=== PATIENT | male | born 1965 | race Caucasian/White ===

== ENCOUNTER 2022-07-21 07:14 | Inpatient (IN) | payer MEDICAID ==
[~2022-07-21] VITALS: Ht 160 cm; Wt 75.7 kg
[2022-07-21 08:22] LABS: BASOPHILS % 0.4 % (0.0-2.0); HEMOGLOBIN. 9.9 g/dL (14.0-18.0); MEAN CORPUSCULAR HEMOGLOBIN 30.5 pg (28.0-32.0); MEAN CORPUSCULAR VOLUME 89.5 fL (80.0-94.0); MEAN PLATELET VOLUME 7.5 fl (7.4-10.4); MONOCYTES % 5.9 % (2.0-8.0); NEUTROPHILS % 82.7 % (40.0-76.0); PLATELET 419 x1000/uL (130-400); RED BLOOD CELL COUNT 3.24 mill/uL (4.7-6.1); RED CELL DISTRIBUTION WIDTH 14.9 % (11.6-14.6)
[2022-07-21 08:34] LABS: CHLORIDE 111 mEq/L (98-107)
[2022-07-21 09:59] LABS: PROTHROMBIN TIME 11.1 sec (9.6-11.0)
[2022-07-21] MEDS ORDERED: POTASSIUM CHLORIDE 20MEQ TABLET SR PO ONE (11:00)
[2022-07-21] MEDS: PANTOPRAZOLE SODIUM 40 MG/VIAL IV SCH ×2 (12:21→12:36)
[2022-07-21 13:06] LABS: CLARITY URINE CLEAR (CLEAR); COLOR URINE YELLOW (YELLOW); KETONES URINE NEGATIVE (NEGATIVE); LEUKOCYTE ESTERASE URINE 3+ (NEGATIVE); NITRITE URINE NEGATIVE (NEGATIVE); OCCULT BLOOD URINE TRACE (NEGATIVE); PH URINE 5.5 (4.5-8.0); PROTEIN URINE 1+ (NEGATIVE); UROBILINOGEN URINE 0.2 E.U./dL (0.2-1.0)
[2022-07-21 13:19] LABS: TOTAL IRON BINDING CAPACITY 280 ug/dL (250-450)
[2022-07-21 13:23] LABS: HEMATOCRIT 24.2 % (42.0-52.0); HEMOGLOBIN 8.1 g/dL (14.0-18.0)
[2022-07-21] MEDS: SODIUM CHLORIDE 0.45% 1,000 ML IV NR (15:52)
[2022-07-21 18:23] VITALS: BP 123/64
[2022-07-21 19:27] LABS: HEMATOCRIT 23.9 % (42.0-52.0); HEMOGLOBIN 7.9 g/dL (14.0-18.0)
[2022-07-21 20:00] VITALS: BP 129/67
[2022-07-21] MEDS ORDERED: DIPHENHYDRAMINE 50MG/ML VIAL IV PRN (20:00)
[2022-07-21] MEDS ORDERED: ACETAMINOPHEN 325MG TABLET PO PRN ×2 (20:00)
[2022-07-21] MEDS ORDERED: ONDANSETRON HCL 4MG/2ML INJ IV PRN (20:00)
[2022-07-21] MEDS ORDERED: PANT40TA51 MT (20:23)
[2022-07-21] MEDS ORDERED: MAGN400T26 MT (20:25)
[2022-07-21] MEDS ORDERED: METO100T16 MT (20:26)
[2022-07-21] MEDS ORDERED: ABIR250T MT (20:26)
[2022-07-21] MEDS ORDERED: FOLI-43 MT (20:27)
[2022-07-21] MEDS ORDERED: PRED5TAB PO (20:29)
[2022-07-22] VITALS: BP 130/86
[2022-07-22 00:57] LABS: HEMATOCRIT 26.1 % (42.0-52.0); HEMOGLOBIN 8.8 g/dL (14.0-18.0)
[2022-07-22] MEDS: SODIUM CHLORIDE 0.45% 1,000 ML IV NR (01:41)
[2022-07-22 04:00] VITALS: BP 127/65
[2022-07-22 06:33] LABS: BASOPHILS % 0.5 % (0.0-2.0); EOSINOPHILS % 1.8 % (0.0-5.0); HEMATOCRIT. 25.4 % (42.0-52.0); HEMOGLOBIN. 8.7 g/dL (14.0-18.0); LYMPHOCYTES % 11.3 % (20.0-50.0); MEAN CORPUSCULAR HEMOGLOBIN 30.8 pg (28.0-32.0); MEAN CORPUSCULAR VOLUME 90.4 fL (80.0-94.0); MEAN PLATELET VOLUME 7.3 fl (7.4-10.4); MONOCYTES % 6.7 % (2.0-8.0); NEUTROPHILS % 79.7 % (40.0-76.0); PLATELET 362 x1000/uL (130-400); RED BLOOD CELL COUNT 2.81 mill/uL (4.7-6.1); RED CELL DISTRIBUTION WIDTH 14.8 % (11.6-14.6)
[2022-07-22 07:50] VITALS: BP 117/63
[2022-07-22 07:55] LABS: CHLORIDE 112 mEq/L (98-107)
[2022-07-22 08:03] LABS: PHOSPHORUS 3.9 mg/dL (2.5-4.9)
[2022-07-22] MEDS ORDERED: POTASSIUM CHLORIDE 20MEQ TABLET SR PO NR (09:00)
[2022-07-22] MEDS ORDERED: MAGNESIUM 1 G PREMIX 100 ML IV NR (12:00)
[2022-07-22 12:19] VITALS: BP 123/68
[2022-07-22] MEDS: PANTOPRAZOLE SODIUM 40 MG/VIAL IV SCH (12:39)
[2022-07-22 13:07] LABS: HEMATOCRIT 24.4 % (42.0-52.0); HEMOGLOBIN 8.1 g/dL (14.0-18.0)
[2022-07-22 15:09] LABS: FOLIC ACID (FOLATE) SERUM 18.3 ng/mL (>5.38)
[2022-07-22] MEDS ORDERED: CYANOCOBALAMIN 1000MCG/ML VIAL IM NR (15:15)
[2022-07-22 16:30] VITALS: BP 116/58
[2022-07-22] MEDS: METOCLOPRAMIDE HCL 10MG/2ML VIAL IV SCH ×2 (18:11→20:47)
[2022-07-22] MEDS: BISACODYL 5MG TABLET PO SCH ×2 (18:11→20:47)
[2022-07-22 18:14] LABS: HEMATOCRIT 25.6 % (42.0-52.0); HEMOGLOBIN 8.5 g/dL (14.0-18.0)
[2022-07-22] MEDS: SORBITOL 70% SOLN 30ML PO SCH ×2 (18:58→20:47)
[2022-07-22 20:00] VITALS: BP 126/67
[2022-07-23] VITALS: BP 142/88
[2022-07-23] MEDS: DEXT 5%/0.45% NACL KCL 40MEQ/L 1,000 ML IV SCH ×2 (00:08→13:15)
[2022-07-23] MEDS: PANTOPRAZOLE SODIUM 40 MG/VIAL IV SCH ×2 (00:08→11:41)
[2022-07-23] MEDS: SORBITOL 70% SOLN 30ML PO SCH ×2 (01:05→05:28)
[2022-07-23] MEDS: BISACODYL 5MG TABLET PO SCH ×2 (01:05→05:28)
[2022-07-23] MEDS: METOCLOPRAMIDE HCL 10MG/2ML VIAL IV SCH ×2 (01:05→05:28)
[2022-07-23 03:46] LABS: CHLORIDE 114 mEq/L (98-107)
[2022-07-23 03:47] LABS: PROTHROMBIN TIME 11.1 sec (9.6-11.0)
[2022-07-23 03:57] LABS: BASOPHILS % 0.4 % (0.0-2.0); EOSINOPHILS % 2.5 % (0.0-5.0); HEMATOCRIT. 26.4 % (42.0-52.0); HEMOGLOBIN. 9.2 g/dL (14.0-18.0); LYMPHOCYTES % 10.8 % (20.0-50.0); MEAN CORPUSCULAR VOLUME 88.7 fL (80.0-94.0); MEAN PLATELET VOLUME 7.3 fl (7.4-10.4); MONOCYTES % 5.6 % (2.0-8.0); NEUTROPHILS % 80.7 % (40.0-76.0); PLATELET 417 x1000/uL (130-400); RED BLOOD CELL COUNT 2.98 mill/uL (4.7-6.1); RED CELL DISTRIBUTION WIDTH 14.9 % (11.6-14.6)
[2022-07-23 04:00] VITALS: BP 132/84
[2022-07-23] MEDS ORDERED: POTASSIUM CHLORIDE 20MEQ TABLET SR PO NR ×3 (05:45→10:15)
[2022-07-23 08:05] VITALS: BP 124/84
[2022-07-23] MEDS ORDERED: MAGNESIUM 2 G PREMIX 50 ML IV ONE (10:15)
[2022-07-23 12:00] VITALS: BP 118/69
[2022-07-23] MEDS ORDERED: PROPOFOL 200MG/20ML VIAL IV ONE ×4 (12:00→13:11)
[2022-07-23] MEDS ORDERED: LIDOCAINE HCL 1% 20ML VIAL (Pyxis) INJ ONE (12:00)
[2022-07-23] MEDS ORDERED: MIDAZOLAM HCL 2 MG/2 ML VIAL ONE (12:03)
[2022-07-23] MEDS ORDERED: SIMETHICONE 40 MG/0.6 ML 15ML ONE (12:04)
[2022-07-23] MEDS ORDERED: EPHEDRINE SULFATE 50MG/ML VIAL ONE (12:15)
[2022-07-23] MEDS ORDERED: PHENYLEPHRINE HCL 10 MG/ML 1ML (IV VIAL) IV ONE (12:18)
[2022-07-23 16:30] VITALS: BP 133/77
[2022-07-23] MEDS ORDERED: CLONIDINE 0.1MG TABLET PO PRN (18:30)
[2022-07-23 20:00] VITALS: BP 99/58
[2022-07-23] MEDS ORDERED: MEROPENEM 1000MG in NORMAL SALINE 100ML IV SCH (20:00)
[2022-07-23] MEDS: MEROPENEM 1,000 MG in SODIUM CHLORIDE 0.9% 100 ML IV SCH (20:49)
[2022-07-23 21:51] LABS: CLARITY URINE CLOUDY (CLEAR); COLOR URINE YELLOW (YELLOW); KETONES URINE NEGATIVE (NEGATIVE); LEUKOCYTE ESTERASE URINE 2+ (NEGATIVE); NITRITE URINE POSITIVE (NEGATIVE); OCCULT BLOOD URINE TRACE (NEGATIVE); PH URINE 5.5 (4.5-8.0); PROTEIN URINE 2+ (NEGATIVE); UROBILINOGEN URINE 0.2 E.U./dL (0.2-1.0)
[2022-07-23] MEDS ORDERED: NALOXONE HCL 0.4MG/ML VIAL IV PRN (22:45)
[2022-07-24] VITALS: BP 90/41
[2022-07-24] MEDS: PANTOPRAZOLE SODIUM 40 MG/VIAL IV SCH ×2 (00:21→12:02)
[2022-07-24] MEDS: DEXT 5%/0.45% NACL KCL 40MEQ/L 1,000 ML IV SCH ×2 (02:55→16:56)
[2022-07-24 04:00] VITALS: BP 97/31
[2022-07-24 07:21] LABS: BASOPHILS % 0.3 % (0.0-2.0); EOSINOPHILS % 1.5 % (0.0-5.0); HEMATOCRIT. 21.9 % (42.0-52.0); HEMOGLOBIN. 7.6 g/dL (14.0-18.0); LYMPHOCYTES % 9.8 % (20.0-50.0); MEAN CORPUSCULAR VOLUME 89.8 fL (80.0-94.0); MEAN PLATELET VOLUME 7.4 fl (7.4-10.4); MONOCYTES % 6.9 % (2.0-8.0); NEUTROPHILS % 81.5 % (40.0-76.0); PLATELET 350 x1000/uL (130-400); RED BLOOD CELL COUNT 2.44 mill/uL (4.7-6.1); RED CELL DISTRIBUTION WIDTH 14.6 % (11.6-14.6)
[2022-07-24 07:24] LABS: CHLORIDE 112 mEq/L (98-107)
[2022-07-24 08:02] VITALS: BP 99/54
[2022-07-24] MEDS: MEROPENEM 1,000 MG in SODIUM CHLORIDE 0.9% 100 ML IV SCH ×2 (08:37→20:58)
[2022-07-24 12:00] VITALS: BP 98/53
[2022-07-24 16:00] VITALS: BP 95/46
[2022-07-24] MEDS: MESALAMINE 500 MG CAPSULE.ER PO SCH ×2 (16:57→20:58)
[2022-07-24 20:00] VITALS: BP 106/49
[2022-07-24] MEDS ORDERED: MESALAMINE 4 GM/60 ML PR SCH (21:00)
[2022-07-25] VITALS: BP 110/60
[2022-07-25] MEDS: PANTOPRAZOLE SODIUM 40 MG/VIAL IV SCH ×2 (01:02→12:58)
[2022-07-25 04:00] VITALS: BP 122/64
[2022-07-25] MEDS: DEXT 5%/0.45% NACL KCL 40MEQ/L 1,000 ML IV SCH ×2 (05:41→20:55)
[2022-07-25 08:00] VITALS: BP 118/62
[2022-07-25 08:31] LABS: BASOPHILS % 0.7 % (0.0-2.0); HEMATOCRIT. 25.7 % (42.0-52.0); HEMOGLOBIN. 8.8 g/dL (14.0-18.0); LYMPHOCYTES % 14.6 % (20.0-50.0); MEAN CORPUSCULAR HEMOGLOBIN 30.4 pg (28.0-32.0); MEAN CORPUSCULAR VOLUME 88.7 fL (80.0-94.0); MEAN PLATELET VOLUME 7.2 fl (7.4-10.4); MONOCYTES % 7.3 % (2.0-8.0); NEUTROPHILS % 73.4 % (40.0-76.0); PLATELET 373 x1000/uL (130-400); RED CELL DISTRIBUTION WIDTH 14.5 % (11.6-14.6)
[2022-07-25 08:43] LABS: CHLORIDE 112 mEq/L (98-107)
[2022-07-25] MEDS: MESALAMINE 500 MG CAPSULE.ER PO SCH ×4 (09:31→21:12)
[2022-07-25] MEDS: MEROPENEM 1,000 MG in SODIUM CHLORIDE 0.9% 100 ML IV SCH ×2 (09:31→20:56)
[2022-07-25 12:00] VITALS: BP 128/53
[2022-07-25 16:00] VITALS: BP 121/67
[2022-07-25 20:00] VITALS: BP 112/67
[2022-07-26] VITALS (7 sets, daily range): BP systolic 108–130; BP diastolic 59–74
[2022-07-26] MEDS: PANTOPRAZOLE SODIUM 40 MG/VIAL IV SCH ×3 (01:41→23:08)
[2022-07-26] MEDS: HYDROCODONE/ACETAMINOPHEN 10/325MG TABLET PO PRN (04:55)
[2022-07-26] MEDS: MESALAMINE 500 MG CAPSULE.ER PO SCH ×4 (08:32→20:08)
[2022-07-26] MEDS: DEXT 5%/0.45% NACL KCL 40MEQ/L 1,000 ML IV SCH ×2 (08:32→21:40)
[2022-07-26] MEDS: MEROPENEM 1,000 MG in SODIUM CHLORIDE 0.9% 100 ML IV SCH ×2 (08:32→20:08)
[2022-07-27 04:11] VITALS: BP 106/53
[2022-07-27 07:11] LABS: BASOPHILS % 0.6 % (0.0-2.0); HEMATOCRIT. 28.4 % (42.0-52.0); HEMOGLOBIN. 9.6 g/dL (14.0-18.0); LYMPHOCYTES % 16.5 % (20.0-50.0); MEAN CORPUSCULAR HEMOGLOBIN 30.1 pg (28.0-32.0); MEAN CORPUSCULAR VOLUME 88.8 fL (80.0-94.0); MEAN PLATELET VOLUME 7.2 fl (7.4-10.4); MONOCYTES % 8.3 % (2.0-8.0); NEUTROPHILS % 72.6 % (40.0-76.0); PLATELET 388 x1000/uL (130-400); RED CELL DISTRIBUTION WIDTH 14.2 % (11.6-14.6)
[2022-07-27 08:00] VITALS: BP 124/62
[2022-07-27] MEDS: MESALAMINE 500 MG CAPSULE.ER PO SCH ×3 (09:02→16:58)
[2022-07-27] MEDS: MEROPENEM 1,000 MG in SODIUM CHLORIDE 0.9% 100 ML IV SCH ×2 (09:03→20:37)
[2022-07-27 12:00] VITALS: BP 130/73
[2022-07-27] MEDS: DEXT 5%/0.45% NACL KCL 40MEQ/L 1,000 ML IV SCH ×2 (12:56→20:40)
[2022-07-27] MEDS: PANTOPRAZOLE SODIUM 40 MG/VIAL IV SCH (12:56)
[2022-07-27 16:00] VITALS: BP 100/76
[2022-07-27 20:00] VITALS: BP 133/76
[2022-07-28] VITALS: BP 129/68
[2022-07-28] MEDS: DEXT 5%/0.45% NACL KCL 40MEQ/L 1,000 ML IV SCH ×2 (00:52→14:50)
[2022-07-28] MEDS: PANTOPRAZOLE SODIUM 40 MG/VIAL IV SCH ×2 (00:57→12:12)
[2022-07-28 04:00] VITALS: BP 130/72
[2022-07-28 07:46] LABS: CHLORIDE 109 mEq/L (98-107)
[2022-07-28 07:55] LABS: EOSINOPHILS % 2.3 % (0.0-5.0); HEMATOCRIT. 28.1 % (42.0-52.0); HEMOGLOBIN. 9.5 g/dL (14.0-18.0); LYMPHOCYTES % 20.1 % (20.0-50.0); MEAN CORPUSCULAR HEMOGLOBIN 30.1 pg (28.0-32.0); MEAN CORPUSCULAR VOLUME 88.7 fL (80.0-94.0); MEAN PLATELET VOLUME 7.3 fl (7.4-10.4); MONOCYTES % 9.1 % (2.0-8.0); NEUTROPHILS % 67.5 % (40.0-76.0); PLATELET 415 x1000/uL (130-400); RED BLOOD CELL COUNT 3.17 mill/uL (4.7-6.1); RED CELL DISTRIBUTION WIDTH 14.4 % (11.6-14.6)
[2022-07-28 08:00] VITALS: BP 114/68
[2022-07-28] MEDS: HYDROCODONE/ACETAMINOPHEN 10/325MG TABLET PO PRN (08:35)
[2022-07-28] MEDS: MEROPENEM 1,000 MG in SODIUM CHLORIDE 0.9% 100 ML IV SCH (08:36)
[2022-07-28] MEDS ORDERED: MESALAMINE 1000MG SUPPOSITORY PR SCH (09:00)
[2022-07-28] MEDS ORDERED: FOSF3PAC PO (11:25)
[2022-07-28 11:55] VITALS: BP 124/78
[2022-07-28 15:30] VITALS: BP 141/78
[2022-07-28 15:39] VITALS: BP 141/78
== END 2022-07-28 17:15 | disposition home or self-care (01) | DRG 720 ==
LOC: ER 07:14 → 6WST 10:22 → EDBEDREQ 10:29 → EDBEDREQTM 10:29
PROVIDERS: ADMIT Internal Medicine; ATTEND Internal Medicine
PROC: 0DBP8ZX Excision of Rectum, Via Natural or Artificial Opening Endoscopic, Diagnostic (ICD-10-PCS; principal; 2022-07-23)
PROC: 0DBN8ZX Excision of Sigmoid Colon, Via Natural or Artificial Opening Endoscopic, Diagnostic (ICD-10-PCS; 2022-07-23)
PROC: 30233N1 Transfusion of Nonautologous Red Blood Cells into Peripheral Vein, Percutaneous Approach (ICD-10-PCS; 2022-07-24)
DX: A41.9 Sepsis, unspecified organism (principal); K51.30 Ulcerative (chronic) rectosigmoiditis without complications; Q89.3 Situs inversus; I95.9 Hypotension, unspecified; K92.2 Gastrointestinal hemorrhage, unspecified; Q43.8 Other specified congenital malformations of intestine; Z20.822 Contact with and (suspected) exposure to COVID-19; N39.0 Urinary tract infection, site not specified; D64.9 Anemia, unspecified; E87.6 Hypokalemia; I10 Essential (primary) hypertension; K62.7 Radiation proctitis; Z92.3 Personal history of irradiation; Z85.46 Personal history of malignant neoplasm of prostate
CPT/HCPCS: 36415; 74176; 80048; 80053; 81003; 82607; 82728; 82746; 83540; 83550; 83735; 84100; 84132; 84145; 85014; 85018; 85025; 85044; 86850; 86900; 86920; 87077; 87186; 87426; 88305; 93970; 99285; C1893; C9113; J2185; J2250; J2370; J2704; J2765; J3420; J3475; J3490; J7050; P9016